=== PATIENT | female | born 1960 | race Caucasian/White ===

== ENCOUNTER 2016-12-26 07:27 | Emergency (ER) | payer MEDICARE, OTHER ==
--- NOTE | 2016-12-26 07:51 | ED Physician Documentation ---
Upper Extremity Injury - HISTORIAN Historian: patient - HPI Stated Complaint: Left Hand Pain Chief Complaint: Upper Extremity Injury Additional Information: hit left wrist and then 5ht finger 5, 4 days ago respectively Front/Back of Body, Lg ([place]): 1 - injury Onset: days ago (5) Where: home Severity: moderate Duration: persistent since (injury) Context: blow Associated Symptoms: denies: tingling, numbness distally, feeling loss, loss of power to arms Modifying Factors: pain on movement Further Comments: no - ROS CONST: no problems CVS/RESP: none NEURO: none MS/SKIN/LYMPH: other (as above left wrist and 5th finger pain) GI/: denies: problems urinating, nausea, vomiting - PAST HX Past History: Rt handed, other (rheumatoid arthritis, lyme's disease, htn) Immunizations: referred to PCP Allergies/Adverse Reactions: Allergies Allergy/AdvReac Type Severity Reaction Status Date / Time Sulfa (Sulfonamide Allergy Intermediate Rash Verified 12/26/16 07:38 Antibiotics) Home Medications: Ambulatory Orders Medication Instructions Recorded Atenolol [Tenormin] 50 mg PO DAILY 06/30/15 CloNIDine HCL [Catapress] 0.1 mg PO PRN PRN 06/30/15 Olmesartan Medoxomil [Benicar] 20 mg PO DAILY 06/30/15 Morphine Sulfate [Morphine Sulfate 60 mg PO TID 02/24/16 ER] amLODIPine BESYLATE [Norvasc] 10 mg PO DAILY 02/24/16 Hydrocodone/Acetaminophen 1 tab PO QID 07/18/16 [Hydrocodon-Acetaminophn 10-325] Sertraline HCl [Sertraline HCl] 100 mg PO D 07/18/16 Tramadol HCl [Ultram] 50 mg PO PRN PRN 07/18/16 - SOCIAL HX Smoking History: cigarettes Alcohol Use: none Drug Use: none - FAMILY HX Family History: no significant history - VITAL SIGNS Vital Signs: Vital Signs Temp Pulse Resp BP Pulse Ox 97.6 F 72 18 169/96 98 12/26/16 07:30 12/26/16 07:30 12/26/16 07:30 12/26/16 07:30 12/26/16 07:30 - REVIEWED ASSESSMENTS Nursing Assessment Reviewed: Yes Vitals Reviewed: Yes Progress - Results/Orders Results/Orders: x-rays left wrist and hand ordered - Progress Progress: pt. stable entire time in er Critical Care Note - Critical Care Note Total Time (mins): 0 ED Results Lab/Radiology - Lab Results Lab Results: none ordered - Radiology Radiology Impressions: X-ray left wrist and hand neg - Orders Orders: ED Orders Category Date Time Status HAND 3 VIEWS OR MORE [RAD] Stat Exams 12/26/16 Ordered WRIST 3 VIEWS OR MORE [RAD] Stat Exams 12/26/16 Ordered Upper Extremity Injury Physic - Physical Exam General Appearance: alert, moderate distress Hand: normal ROM, bone tenderness (dorsal pip joint 5th finger). No: deformity , ecchymosis, infection, laceration Wrist: normal ROM, bone tenderness (left distal ulma). No: deformity, ecchymosis Elbow/Forearm: normal inspection, non-tender, no evidence of injury, normal ROM Shoulder: normal inspection, non-tender, no evidence of injury, normal ROM Neuro/Vascular/Tendon: no vascular compromise, motor nml, sensation nml Skin: warm,dry Head/ENT: nml inspection, pharynx nml Neck/Back: nml inspection, non-tender Resp/CVS: chest non-tender, breath sounds nml, heart sounds nml, no resp. distress, lungs clear, reg. rate & rhythm Abdomen: non-tender, pelvis stable Discharge Clincal Impression: Sprain Home Medications: Ambulatory Orders Atenolol [Tenormin] 50 mg PO DAILY 06/30/15 CloNIDine HCL [Catapress] 0.1 mg PO PRN PRN 06/30/15 Olmesartan Medoxomil [Benicar] 20 mg PO DAILY 06/30/15 Morphine Sulfate [Morphine Sulfate ER] 60 mg PO TID 02/24/16 amLODIPine BESYLATE [Norvasc] 10 mg PO DAILY 02/24/16 Hydrocodone/Acetaminophen [Hydrocodon-Acetaminophn 10-325] 1 tab PO QID Sertraline HCl [Sertraline HCl] 100 mg PO D 07/18/16 Tramadol HCl [Ultram] 50 mg PO PRN PRN 07/18/16 Comments: tricia bandage, ice at home, otc ibuprofen 600 mg p.o. tid Condition: Stable Disposition: 01 HOME, SELF-CARE Decision to Admit: NO Decision Time: 09:00
[2016-12-26 09:06] VITALS: BP 150/68
--- NOTE | 2016-12-27 01:34 | Diagnostic Imaging Report ---
AZALEA LAWSON~ [facility] [address] [address] ~ ~ ~ ~ Report Submission Date: Dec 26, 2016 3:16:40 PM CDT Patient ~ Study Name: CLIFF AGUILAR ~ Date: Dec 26, 2016 8:08:39 AM CDT ~ Modality Type: CR Gender: F ~ Description: UPPER EXTREMITY : 58 ~ Institution: [facility] Physician: AZALEA LAWSON ~ ~ ~ ~ Left hand 3 views Clinical history: Injury during heavy lifting Mild osteoarthrosis is noted at the distal and proximal interphalangeal joints. 3 mm avulsion fracture at the dorsal aspect of the base of the distal phalanx of the left 5th finger. Impression: Osteoarthrosis Avulsion fracture of the base of the distal phalanx of the left 5th finger. ~ Electronically signed on Dec 26, 2016 3:16:40 PM CDT by: Bc LOVE
--- NOTE | 2016-12-27 01:35 | Diagnostic Imaging Report ---
AZALEA LAWSON~ [facility] [address] [facility].[address] [address] ~ ~ ~ ~ Report Submission Date: Dec 26, 2016 11:14:24 AM CDT Patient ~ Study Name: CLIFF AGUILAR ~ Date: Dec 26, 2016 8:15:06 AM CDT ~ Modality Type: CR Gender: F ~ Description: UPPER EXTREMITY : 58 ~ Institution: [facility] Physician: AZALEA LAWSON ~ ~ ~ ~ Left wrist three views Clinical history wrist pain Technique AP lateral oblique projections FINDINGS: ~ The scaffold lunate joint appears widened. ~No fracture is seen. ~The carpal rows are otherwise preserved. 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
== END 2016-12-26 09:05 | disposition home or self-care (01) ==
LOC: ED 07:27
DX: S63.502A Unspecified sprain of left wrist, initial encounter (principal); W19.XXXA Unspecified fall, initial encounter; Y93.9 Activity, unspecified; Y99.9 Unspecified external cause status
CPT/HCPCS: 73110; 73130; 99283

== ENCOUNTER → 2017-01-17 19:02 | Emergency (ER) | payer MEDICARE ==
[2016-12-26 09:06] VITALS: BP 150/68
== END ==
LOC: ED 19:02
DX: M25.569 Pain in unspecified knee (principal)
CPT/HCPCS: 99281

== ENCOUNTER 2017-02-10 10:14 | Outpatient (CLI) | payer MEDICARE ==
--- NOTE | 2017-02-10 14:24 | Diagnostic Imaging Report ---
MAXINE BECERRIL [facility] [address] [facility] [address] [place] [address]. [address] Report Submission Date: February 10, 2017 1:25:56 PM CDT Patient Study Name: CLIFF AGUILAR Date: February 10, 2017 10:31:54 AM CDT Modality Type: US Gender: F Description: US THYROID SOFT TISS HEAD/NCK : 58 Institution: [facility] Physician: MAXINE BECERRIL Ultrasound thyroid Clinical history hypothyroidism Technique: Ultrasound of the and color Doppler was performed of the thyroid gland. Findings: The right lobe measures 3.2 x 1.8 x 1.9 cm. The left lobe measures 2.9 x 1.1 x 1.4 cm. Blood flow is identified in both lobes of the thyroid gland. The left lobe is smaller than the right lobe. A hypoechoic nodule in the right lobe inferiorly measures 6 x 5mm. A calcified nodule is present in the right lobe measuring 5 x 5 mm. The thyroid isthmus measures 3 mm. Impression: Hypoechoic and calcified sub 1 cm right lobe of the thyroid nodules Electronically signed on February 10, 2017 1:25:56 PM CDT by: Dwayne LOVE
--- NOTE | 2017-02-10 14:24 | Diagnostic Imaging Report ---
MAXINE BECERRIL [facility] [address] [facility] [address] [address] Report Submission Date: February 10, 2017 1:27:30 PM CDT Patient Study Name: SAMI AGUILAR+ Date: February 10, 2017 11:14:41 AM CDT Modality Type: CR Gender: F Description: LOWER EXTREMITY : 58 Institution: [facility] Physician: MAXINE BECERRIL Bilateral knees Clinical history: Knee pain Technique standing AP and lateral of both knees Findings: There is medial joint space narrowing and mild varus deformity of both knees. Periarticular spurring is present in both knees. There is to tell femoral joint narrowing at both knees. No fracture joint effusion is seen in either knee. No erosions or bone destruction is identified. Impression: Symmetric degenerative arthritis of the knees Electronically signed on February 10, 2017 1:27:30 PM CDT by: Dwayne LOVE
--- NOTE | 2017-02-10 14:25 | Diagnostic Imaging Report ---
MAXINE BECERRIL [facility] [address] [facility] [address] [place] [address]. [address] Report Submission Date: February 10, 2017 1:29:17 PM CDT Patient Study Name: SAMI AGUILAR+ Date: February 10, 2017 11:20:46 AM CDT Modality Type: CR Gender: F Description: UPPER EXTREMITY : 58 Institution: [facility] Physician: MAXINE BECERRIL Right hand 3 views Clinical history: Pain Technique: AP lateral oblique Findings: No fracture lytic change or row shins are identified. Early degenerative arthritis is present at the the d ip joints of the hand. Early degenerative right is present the radiocarpal joint and there is a small cyst in the capitate bone. No erosions are identified. 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
== END 2017-02-10 10:15 ==
LOC: RAD 10:14
PROVIDERS: ATTEND Family Medicine
DX: E03.9 Hypothyroidism, unspecified (principal)
CPT/HCPCS: 73130; 76536

== ENCOUNTER 2017-07-16 12:15 | Emergency (ER) | payer MEDICARE ==
--- NOTE | 2017-07-16 12:35 | ED Physician Documentation ---
Lower Extremity Injury - HISTORIAN Historian: patient - HPI Chief Complaint: Lower Extremity Injury Additional Information: jammed toes 4-5 in screen door n ow pain 06/21 rt 5th toe. pt on chronic pain meds Onset: days ago (2) Where: home Severity: severe Context: direct blow. denies: wearing shoes Associated Symptoms:: denies: unable to bear weight Modifying Factors:: pain on movement - ROS CONST: no problems CVS/RESP: none GI/: nausea. denies: problems urinating MS/SKIN/LYMPH: back pain (chronic), other (RA LYME HTN ) - PAST HX Past History: other (RA LYME HTN) Allergies/Adverse Reactions: Allergies Allergy/AdvReac Type Severity Reaction Status Date / Time Sulfa (Sulfonamide Allergy Intermediate Rash Verified 07/16/17 12:26 Antibiotics) Home Medications: Ambulatory Orders Medication Instructions Recorded Atenolol [Tenormin] 50 mg PO DAILY 06/30/15 CloNIDine HCL [Catapress] 0.1 mg PO PRN PRN 06/30/15 Olmesartan Medoxomil [Benicar] 20 mg PO DAILY 06/30/15 Morphine Sulfate [Morphine Sulfate 60 mg PO TID 02/24/16 ER] amLODIPine BESYLATE [Norvasc] 10 mg PO DAILY 02/24/16 Sertraline HCl [Sertraline HCl] 200 mg PO D 07/18/16 Tramadol HCl [Ultram] 50 mg PO PRN PRN 07/18/16 - SOCIAL HX Smoking History: less than 1 pack/day Alcohol Use: none Drug Use: none - FAMILY HX Family History: no significant history - VITAL SIGNS Vital Signs: Vital Signs Temp Pulse Resp BP Pulse Ox 98.2 F 68 16 205/79 97 07/16/17 12:15 07/16/17 12:15 07/16/17 12:15 07/16/17 12:15 07/16/17 12:15 - REVIEWED ASSESSMENTS Nursing Assessment Reviewed: Yes Vitals Reviewed: Yes ED Results Lab/Radiology - Radiology Radiology Impressions: xray toes foot rev fx base distal metatarsal-non displaced - Orders Orders: ED Orders Category Date Time Status FOOT 3 VIEWS OR MORE [RAD] Stat Exams 07/16/17 Ordered Diph,Pertuss(Acell),Tet Vac/Pf [Adacel] Med 07/16/17 12:54 Once 0.5 ml IM .ONCE ONE Lower Extremities Injury Phy - Physical Exam General Appearance: mild distress Gait: limited by pain Neuro/Vascular/Tendon: no vascular compromise, motor nml, sensation nml, abnml color (BRUISING BASE TOES). No: abnml warmth, abnml cap refill, pulse deficit Head/ENT: nml inspection Neck/Back: nml inspection Resp/CVS: chest non-tender, breath sounds nml, lungs clear, reg. rate & rhythm Abdomen: non-tender Discharge Clincal Impression: fracture rt 5th toe-metatarsal, rheumatoid arthritis, very sl lac base 4th toe- superficial Referrals: Stalin Figueroa MD [Primary Care Provider] - 2 Days Comments: home ranjeet tape tet tox f/u w/pcp, fx is not displaced Condition: Good Disposition: 01 HOME, SELF-CARE Decision to Admit: NO Decision Time: 12:58
[2017-07-16] MEDS: DIPH,PERTUSS(ACELL),TET VAC/PF 0.5 ML DISP.SYRIN IM ONE (13:05)
[2017-07-16 13:12] VITALS: BP 169/79
--- NOTE | 2017-07-16 14:03 | Diagnostic Imaging Report ---
ISIAH JIM [facility] [address] [facility].[address] [address] Report Submission Date: Jul 16, 2017 12:57:47 PM CDT Patient Study Name: SAMI AGUILAR+ Date: Jul 16, 2017 12:34:30 PM CDT Modality Type: CR Gender: F Description: LOWER EXTREMITY : 58 Institution: [facility] Physician: ISIAH JIM Examination: Plain film foot History: Injury Findings: 3 views of the foot demonstrates a lucency involving the base of the proximal phalanx 5th digit. Possible lucency base proximal phalanx 4th digit. Remaining cortical margins are without abnormality. No soft tissue foreign body. Impression: Fractures involving the base of the proximal phalanx of the 4th and 5th digits. Electronically signed on Jul 16, 2017 12:57:47 PM CDT by: Ben LOVE
== END 2017-07-16 13:10 | disposition home or self-care (01) ==
LOC: ED 12:15
DX: S92.351A Displaced fracture of fifth metatarsal bone, right foot, initial encounter for closed fracture (principal); S91.114A Laceration without foreign body of right lesser toe(s) without damage to nail, initial encounter; M06.9 Rheumatoid arthritis, unspecified; X58.XXXA Exposure to other specified factors, initial encounter; Y93.9 Activity, unspecified; Y99.9 Unspecified external cause status
CPT/HCPCS: 73630; 90471; 90715; 99283

== ENCOUNTER 2017-11-16 11:00 | Emergency (ER) | payer MEDICARE ==
--- NOTE | 2017-11-16 11:59 | ED Physician Documentation ---
General Adult - HISTORIAN Historian: patient - HPI Stated Complaint: cough Chief Complaint: General Adult Onset: days ago (7) Timing: still present Severity: moderate Further Comments: yes (Pt is a 57 yo female who has had a cough for > 1 week. Pt saw pcp one week ago and was rx'd Levaquin and Tamiflu. Pt was not improving and started home HFN and was started on a Medrol dose pack. Pt complains chiefly of a cough that won't quit, for which she has been using Tessalon Perles.) - ROS CONST: other (malaise) EYES/ENT: sore throat (2nd to coughing) CVS/RESP: cough GI/: none MS/SKIN/LYMPH: none - PAST HX Past History: hypertension, other (thyroid d/o) Allergies/Adverse Reactions: Allergies Allergy/AdvReac Type Severity Reaction Status Date / Time Sulfa (Sulfonamide Allergy Intermediate Rash Verified 11/16/17 11:20 Antibiotics) Home Medications: Ambulatory Orders Medication Instructions Recorded Atenolol [Tenormin] 50 mg PO DAILY 06/30/15 CloNIDine HCL [Catapress] 0.1 mg PO PRN PRN 06/30/15 Olmesartan Medoxomil [Benicar] 20 mg PO DAILY 06/30/15 Morphine Sulfate [Morphine Sulfate 60 mg PO TID 02/24/16 ER] amLODIPine BESYLATE [Norvasc] 10 mg PO DAILY 02/24/16 Sertraline HCl [Sertraline HCl] 200 mg PO D 07/18/16 Tramadol HCl [Ultram] 50 mg PO PRN PRN 07/18/16 Budesonide/Formoterol Fumarate 1 puff IH 11/16/17 [Symbicort 160-4.5 Mcg Inhaler] Furosemide [Lasix] 11/16/17 HYDROcodone /APAP 10325 [[place] 1 each PO 11/16/17 10/325] Levothyroxine Sodium [Synthroid] 11/16/17 Potassium Chloride [Klor-Con M20] 20 meq PO DAILY 11/16/17 Prednisone [Prednisone] 11/16/17 Ranitidine HCl [Zantac] 11/16/17 - SOCIAL HX Smoking History: cigarettes - FAMILY HX Family History: No - VITAL SIGNS Vital Signs: Vital Signs Temp Pulse Resp BP Pulse Ox 97.5 F L 90 18 180/87 96 11/16/17 11:02 11/16/17 11:02 11/16/17 11:02 11/16/17 11:02 11/16/17 11:02 - REVIEWED ASSESSMENTS Nursing Assessment Reviewed: Yes Vitals Reviewed: Yes Progress - Progress Progress: Rx Doxycycline 100 mg. Take one by mouth every 12 hrs for 10 days. Rx Robitussin AC (with codeine). Take 10 ml (two teaspoons) by mouth every 4 to 6 hrs as needed for cough. Continue HFN as directed and Medrol Dose pack. - EKG/XRAY/CT XRAY: chest (Impression: Bilateral patchy perihilar infiltrates. No effusion.) ED Results Lab/Radiology - Orders Orders: ED Orders Category Date Time Status CHEST 2 VIEW [CHEST P.A.&LAT 2 VIEWS] [RAD] Stat Exams 11/16/17 Ordered General Adult Physical Exam - PHYSICAL EXAM GENERAL APPEARANCE: mild distress EENT: pharynx normal NECK: normal inspection, supple RESPIRATORY: wheezes, other (coarse breath sounds) CVS: reg rate & rhythm, heart sounds normal BACK: normal inspection, no CVA tenderness SKIN: warm/dry, normal color EXTREMITIES: non-tender, normal range of motion, no evidence of injury, no edema NEURO: oriented X3, motor nml, sensation nml Discharge Clincal Impression: Pneumonia Qualifiers: Pneumonia type: due to unspecified organism Laterality: bilateral Lung location : unspecified part of lung Qualified Code(s): J18.9 - Pneumonia, unspecified organism Referrals: Stalin Figueroa MD [Primary Care Provider] - Condition: Stable Disposition: 01 HOME, SELF-CARE Decision to Admit: NO Decision Time: 13:15
[2017-11-16 12:55] LABS: BASOPHILS % 0.5 (0.0-1.5); EOSINOPHILS % 1.3 % (0.0-6.8); MEAN CORPUSCULAR HEMOGLOBIN 31.4 pg (28.0-34.0); MEAN CORPUSCULAR VOLUME 95.4 fl (80.0-100.0); MONOCYTES % 1.3 % (0.0-11.0); NEUTROPHILS # 8.8 # k/uL (1.4-7.7)
--- NOTE | 2017-11-16 13:08 | Diagnostic Imaging Report ---
FARAZ BARONE [facility] [address] [facility].[address] [address] Report Submission Date: Nov 16, 2017 12:18:48 PM [employer]SEM[employer] INSPECTOR HELPER Patient Study Name: CLIFF AGUILAR Date: Nov 16, 2017 11:54:12 AM [employer]SEM[employer] INS[employer]OR HELPER Modality Type: CR Gender: F Description: CHEST : 58 Institution: [facility] Physician: FARAZ BARONE Examination: PA and lateral chest. History: PERSISTENT COUGH, COUGHING BLOOD X 1 WEEK, HISTORY OF ASTHMA (Hx) / PERSISTENT COUGH (DICOM Hx) / PERSISTENT COUGH (Pt comments) Comparison exam: None available. Findings: PA lateral chest demonstrate a normal cardiac and mediastinal silhouette. Few vascular calcifications involving the aortic arch. Diffuse bilateral perihilar patchy infiltrates. No blunting of the costophrenic margins or posterior sulci. Osseous structures are appropriate for age. Impression: Bilateral patchy perihilar infiltrates. No effusion. Electronically signed on Nov 16, 2017 12:18:48 PM ASSEMBLY INSPECTOR HELPER by: Ben LOVE
[2017-11-16 13:09] LABS: eGFR (African) > 60; eGFR (Non-African) > 60
[2017-11-16 13:17] VITALS: BP 164/77
== END 2017-11-16 13:15 | disposition home or self-care (01) ==
LOC: ED 11:00
DX: J18.9 Pneumonia, unspecified organism (principal)
CPT/HCPCS: 36415; 71020; 80053; 85025; 87040; 99283

== ENCOUNTER 2018-10-25 10:30 | Outpatient (CLI) | payer MEDICARE ==
[2018-10-25 11:30] LABS: eGFR (Non-African) > 60
== END 2018-10-25 10:40 ==
LOC: LAB 10:30
PROVIDERS: ATTEND Family Medicine
DX: Z00.00 Encounter for general adult medical examination without abnormal findings (principal); M06.9 Rheumatoid arthritis, unspecified; I10 Essential (primary) hypertension; E55.9 Vitamin D deficiency, unspecified; E03.9 Hypothyroidism, unspecified
CPT/HCPCS: 36415; 80053; 82306; 82607; 84436; 84439; 84443; 84480; 84481

== ENCOUNTER 2018-12-08 11:55 | Outpatient (CLI) | payer MEDICARE ==
[2018-12-08 12:29] LABS: BASOPHILS % 0.9 (0.0-1.5); EOSINOPHILS % 1.5 % (0.0-6.8); MONOCYTES % 6.4 % (0.0-11.0); NEUTROPHILS # 9.5 # k/uL (1.4-7.7)
== END 2018-12-08 11:57 ==
LOC: LAB 11:55
PROVIDERS: ATTEND Family Medicine
DX: Z00.00 Encounter for general adult medical examination without abnormal findings (principal); M06.9 Rheumatoid arthritis, unspecified; I10 Essential (primary) hypertension; E03.9 Hypothyroidism, unspecified; E55.9 Vitamin D deficiency, unspecified
CPT/HCPCS: 36415; 85025

== ENCOUNTER 2019-01-18 07:44 | Outpatient (CLI) | payer MEDICARE ==
--- NOTE | 2019-01-18 08:58 | Diagnostic Imaging Report ---
MAXINE BECERRIL [facility] [address] [facility].[address] [address] Report Submission Date: Jan 18, 2019 8:46:10 AM CDT Patient Study Name: SADIE AGUILAR Date: Jan 18, 2019 8:07:12 AM CDT Modality Type: US Gender: F Description: US THYROID SOFT TISS HEAD/NCK : 58 Institution: [facility] Physician: MAXINE BECERRIL EXAMINATION: US THYROID SOFT TISS HEAD/NCK HISTORY: F/U THYROID NODULE COMPARISON: None FINDINGS: Right thyroid lobe: 4.8 x 1.6 x 1.3 cm Left thyroid lobe: 3.2 x 1.4 x 1.0 cm Isthmus: 0.4 cm There is a round isoechoic nodule with rim calcification in the right thyroid lobe measuring 0.6 x 0.6 x 0.5 cm (5 points; TR4). No discrete nodule is identified in the left thyroid lobe. The isthmus is not thickened. Vascularity of the thyroid is normal. IMPRESSION: 1. Subcentimeter nodule in the right thyroid lobe (TR4), which does not meet TI- RADS criteria for imaging follow up or tissue sampling. Electronically signed on Jan 18, 2019 8:46:10 AM CDT by: Yosef LOVE
== END 2019-01-18 07:49 | disposition home or self-care (01) ==
LOC: RAD 07:44
PROVIDERS: ATTEND Family Medicine
DX: E04.1 Nontoxic single thyroid nodule (principal)
CPT/HCPCS: 76536

== ENCOUNTER 2019-03-03 08:46 | Outpatient (CLI) | payer MEDICARE | END 2019-03-03 08:48 | LOC: LAB 08:46 | PROVIDERS: ATTEND Family Medicine | DX: E03.9 Hypothyroidism, unspecified (principal) | CPT/HCPCS: 36415; 86376 ==

== ENCOUNTER 2019-06-06 15:11 | Emergency (ER) | payer MEDICARE ==
--- NOTE | 2019-06-06 15:47 | ED Physician Documentation ---
Fall - HPI Stated Complaint: Fall Chief Complaint: Fall Where: home Context: slipped r: moderate Associated Symptoms:: no loss of consciousness Injury to Right Extremity: knee Injury to Left Extremity: knee Further Comments: yes (58 year old female patient presents with left knee pain after a fall from standing last night. Patient reports long history of DJD; worse in left knee. C/O worsening pain today, worse with weight bearing.) - ROS CONST: no problems NEURO: denies: dizziness, anxiety, depression, other MS/SKIN/LYMPH: denies: weakness, numbness, neck pain, back pain, ankle swelling, leg swelling, rash, other EYES/ENT: none CVS/RESP: none GI/: denies: problems urinating, nausea, vomiting, other - PAST HX Past History: other (RA, DJD, HTN, lymes disease. ) Allergies/Adverse Reactions: Allergies Allergy/AdvReac Type Severity Reaction Status Date / Time Sulfa (Sulfonamide Allergy Intermediate Rash Verified 06/06/19 15:45 Antibiotics) Home Medications: Ambulatory Orders Medication Instructions Recorded Atenolol [Tenormin] 50 mg PO DAILY 06/30/15 Olmesartan Medoxomil [Benicar] 20 mg PO DAILY 06/30/15 cloNIDine HCL [Catapress] 0.1 mg PO PRN PRN 06/30/15 Morphine Sulfate [Morphine Sulfate 60 mg PO TID 02/24/16 ER] amLODIPine BESYLATE [Norvasc] 10 mg PO DAILY 02/24/16 Sertraline HCl 200 mg PO D 07/18/16 Tramadol HCl [Ultram] 50 mg PO PRN PRN 07/18/16 Budesonide/Formoterol Fumarate 1 puff IH BID 11/16/17 [Symbicort 160-4.5 Mcg Inhaler] HYDROcodone /APAP 10/325 [[place] 1 each PO Q4H PRN 11/16/17 10/325] Levothyroxine Sodium [Synthroid] 25 mcg PO DAILY 11/16/17 Potassium Chloride [Klor-Con M20] 20 meq PO DAILY 11/16/17 Ranitidine HCl [Zantac] 150 mg PO BID 11/16/17 Hydroxychloroquine (Nf) [Plaquenil 200 mg PO BID 06/06/19 (Nf)] - SOCIAL HX Smoking History: cigarettes - FAMILY HX Family History: denies: none - VITAL SIGNS Vital Signs: Vital Signs Temp Pulse Resp BP Pulse Ox 97.9 F 69 16 203/81 97 06/06/19 15:36 06/06/19 15:36 06/06/19 15:36 06/06/19 15:36 06/06/19 15:36 - REVIEWED ASSESSMENTS Nursing Assessment Reviewed: Yes Vitals Reviewed: Yes ED Results Lab/Radiology - Radiology Radiology Impressions: Examination: Plain film left knee History: Knee discomfort. Fall Findings: 3 views of the left knee demonstrates osteopenia. Degenerative spurring. No fracture. No dislocation. Suprapatellar joint effusion. No soft tissue irregularity. Impression: Osteopenia and degenerative changes. No acute appearing osseous abnormality. Joint effusion. Electronically signed on Jun 06, 2019 4:09:26 PM CDT by: Ben Velarde - Orders Orders: ED Orders Category Date Time Status KNEE 3 VIEWS [RAD] Stat Exams 06/06/19 Ordered Fall Physical Exam - Physical Exam General Appearance: mild distress Head: non-tender, no swelling, no obvious injury Eye: ALFREDO Resp/CVS: no resp. distress Neuro: oriented x3, motor nml, mood/affect nml Skin: color nml, no rash, nml palp., dry Extremities: atraumatic, pelvis stable, hips non-tender, no pedal edema, nml ROM, nml color/temp, other (left knee with moderate edema; no ecchymosis, no abrasions) Discharge Clincal Impression: Left knee DJD Qualifiers: Osteoarthritis type: unspecified Qualified Code(s): M17.12 - Unilateral primary osteoarthritis, left knee Sprain of left knee Qualifiers: Encounter type: initial encounter Involved ligament of knee: other ligament Qualified Code(s): S83.8X2A - Sprain of other specified parts of left knee, initial encounter Referrals: Stalin Figueroa MD [Primary Care Provider] - 2 Days Additional Instructions: Ice Rest Elevation If you are unable to bear weight and continuing to have significant pain on day 3-4; see your PCP for re-evaluation and additional xrays. You may use Tylenol every 4hour as needed for pain. Limit your dose to less than 4 G per day. You may want to try massage, over the counter lidocaine patches, biofreeze, marie up or aspercream . Condition: Stable Disposition: 01 HOME, SELF-CARE Decision to Admit: NO Decision Time: 16:14
[2019-06-06] MEDS ORDERED: KETOROLAC TROMETHAMINE 60 MG/2 ML VIAL IM ONE (16:13)
[2019-06-06 16:24] VITALS: BP 188/84
--- NOTE | 2019-06-08 12:52 | Diagnostic Imaging Report ---
MINDA HARVEY (AGRICULTURE INTERN) - ER [facility] [address] [address] Report Submission Date: Jun 06, 2019 4:09:26 PM CDT Patient Study Name: SADIE AGUILAR Date: Jun 06, 2019 3:41:12 PM CDT Modality Type: DX Gender: F Description: KNEE 3 VIEWS : 58 Institution: [facility] Physician: MINDA HARVEY (JOSE) - ER Examination: Plain film left knee History: Knee discomfort. Fall Findings: 3 views of the left knee demonstrates osteopenia. Degenerative spurring. No fracture. No dislocation. Suprapatellar joint effusion. No soft tissue irregularity. Impression: Osteopenia and degenerative changes. No acute appearing osseous abnormality. Joint effusion. Electronically signed on Jun 06, 2019 4:09:26 PM CDT by: Ben LOVE
== END 2019-06-06 16:22 | disposition home or self-care (01) ==
LOC: ED 15:11
DX: S83.8X2A Sprain of other specified parts of left knee, initial encounter (principal); M17.12 Unilateral primary osteoarthritis, left knee; W01.0XXA Fall on same level from slipping, tripping and stumbling without subsequent striking against object, initial encounter; Y99.8 Other external cause status
CPT/HCPCS: 73562; 96372; 99283; 99284; J1885